=== PATIENT | male | born 1955 | race Caucasian/White ===

== ENCOUNTER 2025-04-03 08:43 | Outpatient (CLI) | payer MEDICARE, BC ==
[2025-04-03 09:07] LABS: #Basophils 0.1 thou/uL (0.0-0.2); #Eosinophils 0.1 thou/uL (0.0-0.7); #Lymphocytes 2.8 thou/uL (1.20-3.40); #Monocytes 0.6 thou/uL (0.11-0.59); #Neutrophils 3.5 thou/uL (1.40-6.50); %Basophils 1.3 % (0.0-1.0); %Eosinophils 1.8 % (0.0-10.0); %Lymphocytes 39.2 % (21.0-51.0); %Monocytes 8.4 % (0.0-10.0); %Neutrophils 49.4 % (42.0-75.0); Hematocrit 48.2 % (42.0-52.0); Hemoglobin 15.2 g/dL (14.0-18.0); Mean Corpuscular Hemoglobin 31.2 pg (27.0-31.0); Mean Corpuscular Volume 99.3 fl (78.0-98.0); Platelet Count 206 10x3/uL (130-400); Red Blood Cell (RBC) Count 4.85 mill/uL (4.70-6.10); White Blood Cell (WBC) Count 7.0 10x3/uL (4.8-10.8)
[2025-04-03 09:15] LABS: ALT (SGPT) 48 U/L (Less than 45); AST (SGOT) 31 U/L (11-34); Albumin 4.2 g/dL (3.1-4.5); Alkaline Phosphatase 62 U/L (40-110); Anion Gap 14 mmol/L (10-20); BUN (Urea Nitrogen) 25 mg/dL (8.4-25.7); Bilirubin, Total 0.6 mg/dL (0.3-1.2); Calc. Creatinine Clearance 0 mL/min (70-130); Calcium 8.9 mg/dL (7.8-10.44); Carbon Dioxide 26 mmol/L (23-31); Cardiac Risk 2.1 (Less than 4.5); Chloride 105 mmol/L (98-107); Cholesterol 116 mg/dl (< 200 Desired); Globulin 2.5 g/dL (2.4-3.5); Glucose 98 mg/dL (80-115); HDL Cholesterol 56 mg/dL (>60 Neg Risk); LDL Cholesterol, Calculated 49 mg/dL; Potassium 3.8 mmol/L (3.5-5.1); Sodium 141 mmol/L (136-145); Triglycerides 54 mg/dL (Less than 150)
[2025-04-03 09:21] LABS: Glucose, Urine (Dipstick) Negative (Negative); Leukocyte Negative (Negative); Protein, Urine (Dipstick) Negative (Neg-Trace); RBC/HPF 0-3 HPF (0-3); Specific Gravity, Urine 1.015 (1.005-1.030)
[2025-04-03 09:22] LABS: Bacteria/HPF Rare-Few HPF (None Seen); WBC/HPF 0-3 HPF (0-3)
[2025-04-03 16:39] LABS: PSA-Symptomatic (DIAGNOSTIC) 5.438 ng/mL (0-4.0); Vitamin D, 25 Hydroxy 38.7 ng/ml (> 30.0)
== END 2025-04-03 08:44 | disposition home or self-care (01) ==
LOC: MADLAB 08:43
PROVIDERS: ATTEND Family Medicine
DX: Z51.81 Encounter for therapeutic drug level monitoring (principal); Z79.899 Other long term (current) drug therapy
CPT/HCPCS: 36415; 80053; 80061; 81001; 82306; 83036; 84153; 84443; 85025